=== PATIENT | male | born 1955 | race Caucasian/White ===

== ENCOUNTER 2018-11-01 07:35 | Day surgery (SDC) | payer BC ==
[2018-10-31 16:10] LABS: BASOPHILS 0.3 % (0-2); EOSINOPHILS 3.1 % (0-7); HEMOGLOBIN 12.1 g/dL (13.5-17.5); IMMATURE GRANULOCYTES 0.1 % (0-5); LYMPHOCYTES 14.5 % (15-50); MCH 28.6 pg (26.0-34.0); MCHC 32.7 g/dL (31.0-37.0); MCV 87.5 fL (80.0-100.0); MEAN PLATELET VOLUME 9.4 fL (7.4-10.4); MONOCYTES 11.4 % (2-11); NEUTROPHILS 70.6 % (40-80); RBC 4.23 10x6/uL (4.20-6.10); RDW 13.4 % (11.5-14.5); WBC 6.8 10x3/uL (4.8-10.8)
[2018-10-31 16:23] LABS: PLATELET COUNT 321 10x3/uL (130-400)
[2018-10-31 16:29] LABS: ANION GAP 14.8 mmol/L (8-16); CALCIUM 9.3 mg/dL (8.5-10.1); CARBON DIOXIDE 29.1 mmol/L (21.0-32.0); CREATININE - SERUM 1.5 mg/dL (0.6-1.3); POTASSIUM - SERUM 4.9 mmol/L (3.5-5.1)
[~2018-11-01] VITALS: Ht 188 cm; Wt 92.5 kg
[~2018-11-01 07:35] MED LIST: BACTRIM 400-801 TAB PO; BENADRYL50 MG PO; CLARITIN 10 MG10 MG PO; CYCLOBENZAPRINE5 MG PO; GLIMEPIRIDE2 MG PO; GLUCOPHAGE500 MG PO; L-ARGININE500 MG PO; LUTEIN20 MG PO; MELATONIN 3 MG1 TAB PO; NORCO 10-325 TA1 TAB PO; OSTEO BI-FLEX1 EAC1 PO; OXYCODONE-APAP1 TAB PO; PLAVIX75 MG PO; PRAVACHOL20 MG PO; PREDNISONE50 MG PO; PROBIOTIC1 EAC1 PO; TENORMIN25 MG PO; TUMERIC CURCUMIN PO
[2018-11-01 08:43] VITALS: BP 112/86; Ht 188 cm; Wt 92.5 kg
[2018-11-01] MEDS ORDERED: NORCO 10-325 TA1 TAB PO (11:45)
--- NOTE | 2018-11-05 08:29 | OP ---
PATIENT NAME: DANY SWAIN MEDICAL RECORD: [id number] :59 LOCATION:[facility] ADMISSION DATE: SURGEON: BENJAMIN ONOFRE MD DATE OF OPERATION: 11/01/2018 PREOPERATIVE DIAGNOSES: Rotator cuff tear of the right shoulder with impingement syndrome. 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 PROCEDURES: 1. Arthroscopic distal clavicle excision under separate incision. 2. Arthroscopic subacromial decompression. SURGEON: Benjamin Onofre MD ANESTHESIA: General. INTRAOPERATIVE COMPLICATIONS: None. SUMMARY OF PATHOLOGIC FINDINGS: While the patient did have substantial attritional tearing of the rotator cuff, at no point was full thickness tearing seen and the biceps tendon was in overall good condition. OPERATIVE SUMMARY IN DETAIL: After obtaining the appropriate preoperative orthopedic surgery consent as well as anesthetic consultation, evaluation and clearance, the patient was brought to the operating room and placed on the operating table in supine position. After general laryngeal mask airway was administered, the patient was placed in left lateral decubitus position. All pressure points were well padded to include down leg peroneal pad as well as axillary roll. The patient was held firmly to the operating table using the vacuum suction system. Right upper extremity and shoulder were then prepped and draped in routine sterile fashion. The arm was held in the Arthrex traction boom at 30 degrees of forward flexion, 30 degrees of abduction, 10 pounds of traction laterally. Arthroscopy was established in the glenohumeral joint from the posterior portal. Anterior portal was established from the anterior safe interval. Diagnostic arthroscopy did reveal the above findings. Attention was then turned to the subacromial space. After arthroscopy was established in the subacromial space, accessory lateral portal was created through which the Arthrex tissue ablation system was utilized to denude the undersurface of the acromion of all soft tissue elements and release the coracoacromial ligament as well as release the capsule of acromioclavicular joint. A 5-0 barrel bur was used to perform acromioplasty at the level of acromioclavicular joint, then through a separate incision arthroscopically guided distal clavicle excision was performed 1 cm. Having completed this, the bursa was taken down and the attritional tears of the rotator cuff were debrided. Having completed this, arthroscopy portals were closed in routine interrupted fashion using 4-0 Prolene. Sterile dressing applied. The patient was awakened and taken to the recovery room in a stable condition. All final needle and sponge counts were correct. TRANSINT:[id number] Voice Confirmation ID: [id number] DOCUMENT ID: [id number] OPERATIVE REPORT [id number] DANY SWAIN MD, BENJAMIN BEARDEN at 0829 CC: [id number] DICTATION DATE: 11/02/18 1024 TUMBLER MACHINE OPERATOR: 11/02/18 1315 [facility] 11/01/18 [id number] [place] [address]
== END 2018-11-01 11:37 | disposition home or self-care (01) ==
LOC: D.PAN 07:35 → D.OPS 17:45 → D.PAN 17:45
PROVIDERS: Anesthesiology
DX: M75.41 Impingement syndrome of right shoulder (principal); M13.811 Other specified arthritis, right shoulder; M75.111 Incomplete rotator cuff tear or rupture of right shoulder, not specified as traumatic; Z01.812 Encounter for preprocedural laboratory examination

== ENCOUNTER 2018-12-20 09:15 | Day surgery (SDC) | payer BC ==
[2018-12-18 10:10] LABS: HEMATOCRIT 36.2 % (42.0-54.0); HEMOGLOBIN 11.9 g/dL (13.5-17.5); MCHC 32.9 g/dL (31.0-37.0); MCV 88.3 fL (80.0-100.0); MEAN PLATELET VOLUME 9.5 fL (7.4-10.4); RBC 4.1 10x6/uL (4.20-6.10); WBC 7.1 10x3/uL (4.8-10.8)
[2018-12-18 10:24] LABS: ANION GAP 15.7 mmol/L (8-16); CALCIUM 9.6 mg/dL (8.5-10.1); CARBON DIOXIDE 25.9 mmol/L (21.0-32.0); CREATININE - SERUM 1.4 mg/dL (0.6-1.3); POTASSIUM - SERUM 4.6 mmol/L (3.5-5.1)
[~2018-12-20] VITALS: Ht 188 cm; Wt 91.2 kg
[~2018-12-20 09:15] MED LIST changes: +FOLBEE PLUS TAB1 TAB PO; +METHOTREXATE2.5 MG PO
[2018-12-20] MEDS ORDERED: ATIVAN1 MG PO (09:35)
[2018-12-20 09:36] VITALS: BP 132/81; Ht 188 cm; Wt 91.2 kg
[2018-12-20] MEDS ORDERED: HYDROCODON-ACE1 EA10 PO (13:06)
--- NOTE | 2018-12-20 13:49 | OP ---
PATIENT NAME: DANY SWAIN MEDICAL RECORD: [id number] :57 LOCATION:[facility] ADMISSION DATE: SURGEON: JEMIMA DIAS, BENJAMIN BEARDEN DATE OF OPERATION: 12/20/2018 PREOPERATIVE DIAGNOSES: 1. Rotator cuff tear of the left shoulder. 2. Biceps tendinitis of the left shoulder. 3. Impingement syndrome of the left shoulder. 4. Acromioclavicular arthritis of the left shoulder. POSTOPERATIVE DIAGNOSES: 1. Rotator cuff tear of the left shoulder. 2. Biceps tendinitis of the left shoulder. 3. Impingement syndrome of the left shoulder. 4. Acromioclavicular arthritis of the left shoulder. PROCEDURES: 1. Arthroscopic rotator cuff repair. 2. Arthroscopic biceps tenodesis. 3. Arthroscopic subacromial decompression with acromioplasty and bursectomy. 4. Arthroscopic distal clavicle excision under through separate incision - 1 cm. SURGEON: Benjamin Onofre MD ANESTHESIA: General. INTRAOPERATIVE COMPLICATIONS: None. SUMMARY OF PATHOLOGIC FINDINGS: Consistent with the preoperative diagnosis, the patient had a full thickness rotator cuff tear, severe biceps tendinitis, also had a downward sloping acromion with acromioclavicular arthritis, excoriation of the coracoacromial ligament. Ironically, the patient had some direct lateral impingement as well. OPERATIVE SUMMARY IN DETAIL: After obtaining the appropriate preoperative orthopedic surgery consent as well as anesthetic consultation, evaluation and clearance, the patient was brought to the operating room and placed on the operating table in supine position. After general laryngeal mask airway was administered, the patient was placed in right lateral decubitus position. All pressure points were well padded to include down leg peroneal pad as well as axillary roll. The patient was held firmly to the operating table using the vacuum pack suction system. Left upper extremity and shoulder were then prepped and draped in routine sterile fashion. The arm was held in the Arthrex traction boom in 30 degrees of forward flexion, 30 degrees of abduction with 10 pounds of traction laterally. Arthroscopy was established in the glenohumeral joint from the posterior portal. Anterior portal was established in the anterior safe interval. Diagnostic arthroscopy revealed the above findings. Transarthroscopic rotator portal was created for debridement. The biceps tendon was then tagged with #2 FiberWire using the arthroscopic scorpion system and this was saved for later biceps tenodesis. Biceps was released. Attention was then turned to the subacromial space. While in the subacromial space, Max tissue ablation system was utilized to denude the undersurface of the acromion of all soft tissue elements and release the coracoacromial ligament. A 5-0 OPERATIVE REPORT [id number] DANY SWAIN barrel bur was used to perform acromioplasty at the level of acromioclavicular joint. Distal clavicle was excised for 1 cm using the 5-0 barrel bur under arthroscopic visualization through a direct anterior portal. Having completed this, attention was returned to the rotator cuff, biceps was then tenodesed using a 4.75 SwiveLock from Arthrex. It was tenodesed mid portion in the bicipital groove. Having completed this, the rotator cuff repair was achieved with a #2 FiberTape in an inverted mattress fashion and it was anchored laterally with a single 5.5 SwiveLock from Arthrex resulting in excellent reestablishment of the rotator cuff back over the supraspinatus tendinous footprint. Having completed this, arthroscopy portals were closed in routine interrupted fashion using 4-0 Prolene. Sterile dressings were applied. The patient was awakened and taken to recovery room in stable condition. All final needle and sponge counts were correct. TRANSINT:[id number] Voice Confirmation ID: [id number] DOCUMENT ID: [id number] JEMIMA DIAS, BENJAMIN BEARDEN at 1349 CC: [id number] DICTATION DATE: 12/20/18 1315 CHIEF COMPLIANCE OFFICER: 12/20/18 [id number] [place] [address]
--- NOTE | 2018-12-20 15:10 | NUR ---
1500 IV DC'D. NO BLEEDING AT SITE. BANDAID APPLIED.
== END 2018-12-20 15:19 | disposition home or self-care (01) ==
LOC: D.OPS 09:15 → D.PAN 14:30 → D.OPS 15:19
PROVIDERS: Anesthesiology; ATTEND Orthopaedic Surgery
DX: M75.122 Complete rotator cuff tear or rupture of left shoulder, not specified as traumatic (principal); M75.22 Bicipital tendinitis, left shoulder; M75.42 Impingement syndrome of left shoulder; M13.812 Other specified arthritis, left shoulder; Z01.812 Encounter for preprocedural laboratory examination